=== PATIENT | male | born 1970 | race Caucasian/White ===

== ENCOUNTER 2019-07-31 22:03 | Inpatient (IN) ==
[2019-07-31] MEDS ORDERED: 0.9 % Sodium Chloride 1,000 ML IVC ONE ×2 (22:09→23:47)
[2019-07-31 22:39] LABS: Eosinophils % 0.4 %; Red Cell Distribution Width 14.8 % (11.5-14.5)
[2019-07-31 22:42] LABS: Hemoglobin 13.4 g/dL (12.9-16.9)
[2019-07-31 22:44] LABS: Basophils # 0.1 K/mcL (0.0-0.2); Basophils % 1.2 %; Immature Platelets 5.7 % (1.1-6.1); Lymphocytes % 41.9 %; Mean Corpuscular HGB Conc 33.5 g/dL (31.6-35.5); Mean Corpuscular Hemoglobin 33.6 pg (28.0-33.3); Mean Corpuscular Volume 100.3 fL (83.0-100.0); Mean Platelet Volume 10.9 fL (9.4-12.4); Monocytes # 0.8 K/mcL (0.0-1.3); Monocytes % 16.5 %; Neutrophils # 1.9 K/mcL (1.6-8.9); Red Blood Count 3.99 M/mcL (4.19-5.50); White Blood Count 4.8 K/mcL (4.3-11.1)
[2019-07-31 22:47] LABS: Platelet Count 98 K/mcL (140-400)
[2019-07-31 23:02] LABS: BUN/Creatinine Ratio 16 (6-26); Blood Urea Nitrogen 23 mg/dL (6-20); Calcium 9.4 mg/dL (8.6-10.3); Carbon Dioxide 21 mEq/L (23-29); Chloride 103 mEq/L (98-107); Glucose 153 mg/dL (70-105); Osmolality,Calculated 287 (280-300); Potassium 3.9 mEq/L (3.5-5.1); Sodium 135 mEq/L (136-145); Troponin I < 0.03 ng/mL (< 0.04); eGFR For African Americans > 60 (> 60); eGFR For Non-African Americans 53 (> 60)
[2019-07-31] MEDS ORDERED: Isovue-370 500 ML BOTTLE IVP ONE (23:03)
[2019-08-01 00:14] LABS: Alanine Aminotransferase 14 Units/L (7-52); Albumin 3.6 g/dL (3.5-5.7); Albumin/Globulin Ratio 1.1 (1.1-2.2); Alkaline Phosphatase 46 Units/L (34-104); Aspartate Amino Transferase 40 Units/L (13-39); Bilirubin,Direct 0.6 mg/dL (0.0-0.2); Bilirubin,Indirect 0.8 mg/dL (0.0-1.0); Bilirubin,Total 1.4 mg/dL (0.3-1.0); Globulin 3.2 g/dL (2.4-3.5); Total Protein 6.8 g/dL (6.4-8.9)
[2019-08-01] MEDS ORDERED: 0.9 % Sodium Chloride 1,000 ML IVC SCH (01:45)
[2019-08-01] MEDS ORDERED: Ondansetron 4 MG/2 ML VIAL IVP PRN (01:52)
[2019-08-01] MEDS ORDERED: Naloxone 0.4 MG/ML INJ IVP PRN (01:52)
[2019-08-01 02:09] LABS: Bilirubin,Urine Small (Negative); Blood,Urine Negative (Negative); Clarity,Urine Clear (Clear); Color,Urine Dark Yellow (Yellow); Glucose,Urine (UA) Normal (Normal); Ketones,Urine Trace mg/dL (Negative); Leukocyte Esterase,Urine Trace (Negative); Nitrite,Urine Negative (Negative); Protein,Urine 30 mg/dL (Neg-Trace); Specific Gravity,Urine > 1.030 (1.010-1.025); Urobilinogen,Urine >=8.0 mg/dL (Normal)
[2019-08-01 02:10] LABS: Hyaline Casts,Urine None Seen per lpf (None-Few); RBC,Urine 0-3 per hpf (0-3); WBC,Urine 0-3 per hpf (0-3)
[2019-08-01 02:18] LABS: Sodium, Urine 65.9 mEq/L
[2019-08-01 02:19] LABS: Mean Corpuscular Volume 101.4 fL (83.0-100.0); Mean Platelet Volume 10.8 fL (9.4-12.4)
[2019-08-01 02:19] LABS: Amorphous Sediment,Urine Few per hpf (Few); Bacteria,Urine Few per hpf (None-Few); Squamous Epithelial Cell,Urine Few per lpf (None-Few)
[2019-08-01 02:20] LABS: Hematocrit 36.1 % (37.5-50.1); Hemoglobin 11.8 g/dL (12.9-16.9); Mean Corpuscular HGB Conc 32.7 g/dL (31.6-35.5); Mean Corpuscular Hemoglobin 33.1 pg (28.0-33.3); Red Blood Count 3.56 M/mcL (4.19-5.50); White Blood Count 4.7 K/mcL (4.3-11.1)
[2019-08-01 03:00] LABS: Creatine Kinase 56 Units/L (30-223); Uric Acid 4.6 mg/dL (2.3-7.6)
[2019-08-01 03:20] LABS: Alanine Aminotransferase 12 Units/L (7-52); Albumin 3.1 g/dL (3.5-5.7); Albumin/Globulin Ratio 1.1 (1.1-2.2); Alkaline Phosphatase 38 Units/L (34-104); Aspartate Amino Transferase 33 Units/L (13-39); BUN/Creatinine Ratio 19 (6-26); Bilirubin,Total 1.1 mg/dL (0.3-1.0); Blood Urea Nitrogen 22 mg/dL (6-20); Calcium 8.5 mg/dL (8.6-10.3); Carbon Dioxide 22 mEq/L (23-29); Chloride 108 mEq/L (98-107); Chol/HDL Ratio 5.6 (0-4.9); Cholesterol 100 mg/dL (< 200); Globulin 2.8 g/dL (2.4-3.5); Glucose 82 mg/dL (70-105); HDL Cholesterol 18 mg/dL (40-59); LDL Cholesterol,Calculated 47 mg/dL (0-99); Magnesium 1.6 mg/dL (1.6-2.6); Osmolality,Calculated 286 (280-300); Phosphorous 2.1 mg/dL (2.7-4.5); Potassium 4.2 mEq/L (3.5-5.1); Sodium 137 mEq/L (136-145); Thyroid Stimulating Hormone 2.681 mcIU/mL (0.340-5.600); Total Protein 5.9 g/dL (6.4-8.9); Triglycerides 176 mg/dL (< 150); eGFR For African Americans > 60 (> 60); eGFR For Non-African Americans > 60 (> 60)
[2019-08-01 03:23] LABS: Folate 4.8 ng/mL (3.0-16.0)
[2019-08-01 03:28] LABS: Vitamin B12 > 1500 pg/mL (250-1100)
[2019-08-01 03:44] LABS: Valproate 4 mcg/mL (50-100)
[2019-08-01] MEDS ORDERED: Acetaminophen 325 MG TABLET PO PRN (03:52)
[2019-08-01 04:56] LABS: Eosinophils % 0.2 %; Hemoglobin 11.2 g/dL (12.9-16.9); Red Cell Distribution Width 15.1 % (11.5-14.5)
[2019-08-01 04:57] LABS: Hematocrit 34.1 % (37.5-50.1); Immature Platelets 4.8 % (1.1-6.1); Lymphocytes # 1.5 K/mcL (0.6-4.6); Lymphocytes % 36.4 %; Mean Corpuscular HGB Conc 32.8 g/dL (31.6-35.5); Mean Corpuscular Hemoglobin 33.3 pg (28.0-33.3); Mean Corpuscular Volume 101.5 fL (83.0-100.0); Mean Platelet Volume 10.5 fL (9.4-12.4); Monocytes # 0.7 K/mcL (0.0-1.3); Monocytes % 17.5 %; Neutrophils # 1.8 K/mcL (1.6-8.9); Red Blood Count 3.36 M/mcL (4.19-5.50); Segmented Neutrophils % 43.9 %; White Blood Count 4.1 K/mcL (4.3-11.1)
[2019-08-01 05:14] LABS: BUN/Creatinine Ratio 19 (6-26); Blood Urea Nitrogen 21 mg/dL (6-20); Calcium 8.3 mg/dL (8.6-10.3); Carbon Dioxide 21 mEq/L (23-29); Chloride 109 mEq/L (98-107); Glucose 80 mg/dL (70-105); Magnesium 1.7 mg/dL (1.6-2.6); Osmolality,Calculated 284 (280-300); Phosphorous 2.6 mg/dL (2.7-4.5); Potassium 4.2 mEq/L (3.5-5.1); Sodium 136 mEq/L (136-145); eGFR For African Americans > 60 (> 60); eGFR For Non-African Americans > 60 (> 60)
[2019-08-01 05:15] LABS: Platelet Count 90 K/mcL (140-400); Platelet Estimate Decreased (Normal); Polychromasia 1+ (Not Present)
[2019-08-01] MEDS ORDERED: Bismuth Subsalicylate 120 ML ORAL SUSPENSION PO PRN (09:00)
[2019-08-01] MEDS ORDERED: Bisacodyl 10 MG RECTAL SUPPOSITORY RC PRN (09:00)
[2019-08-01] MEDS ORDERED: Mag Hydrox/Al Hydrox/Simeth 30 ML UDC PO PRN (09:00)
[2019-08-01] MEDS ORDERED: MOM Conc 10 ML UD.LIQ PO PRN (09:00)
[2019-08-01] MEDS: QUEtiapine Fumarate 100 MG TABLET PO SCH (11:43)
[2019-08-01] MEDS ORDERED: Isovue-370 500 ML BOTTLE IVP ONE (12:30)
[2019-08-01] MEDS: MetroNIDAZOLE 500 MG/100 ML 500 MG/100 ML BAG IVPB SCH ×3 (12:47→23:18)
[2019-08-01] MEDS: 0.9 % Sodium Chloride 1,000 ML IVC SCH ×2 (12:48→23:13)
[2019-08-01] MEDS: levETIRAcetam 250 MG TABLET PO SCH (17:11)
[2019-08-01] MEDS ORDERED: QUEtiapine Fumarate 100 MG TABLET PO SCH (20:00)
[2019-08-01] MEDS ORDERED: Divalproex (24 HR) 500 MG TABLET PO SCH (20:00)
[2019-08-01] MEDS ORDERED: Fenofibrate 54 MG TABLET PO SCH (20:00)
[2019-08-01] MEDS: Lactulose Oral Soln 20 GM/30 ML UDC PO SCH (20:03)
[2019-08-02 03:12] LABS: Basophils # 0.1 K/mcL (0.0-0.2); Basophils % 1.3 %; Eosinophils # 0.1 K/mcL (0.0-0.6); Eosinophils % 1.3 %; Hematocrit 31.2 % (37.5-50.1); Hemoglobin 10.3 g/dL (12.9-16.9); Immature Granulocytes % 0.8 % (0-4); Lymphocytes # 2.1 K/mcL (0.6-4.6); Mean Corpuscular Hemoglobin 34.2 pg (28.0-33.3); Mean Corpuscular Volume 103.7 fL (83.0-100.0); Mean Platelet Volume 10.7 fL (9.4-12.4); Monocytes # 0.6 K/mcL (0.0-1.3); Monocytes % 16.1 %; Neutrophils # 1.1 K/mcL (1.6-8.9); Platelet Count 102 K/mcL (140-400); Red Blood Count 3.01 M/mcL (4.19-5.50); Red Cell Distribution Width 15.4 % (11.5-14.5); Segmented Neutrophils % 28.5 %
[2019-08-02 03:29] LABS: Alanine Aminotransferase 10 Units/L (7-52); Albumin 2.8 g/dL (3.5-5.7); Albumin/Globulin Ratio 1.1 (1.1-2.2); Alkaline Phosphatase 32 Units/L (34-104); Aspartate Amino Transferase 29 Units/L (13-39); BUN/Creatinine Ratio 15 (6-26); Bilirubin,Total 0.8 mg/dL (0.3-1.0); Blood Urea Nitrogen 15 mg/dL (6-20); Calcium 8.2 mg/dL (8.6-10.3); Carbon Dioxide 21 mEq/L (23-29); Chloride 114 mEq/L (98-107); Globulin 2.5 g/dL (2.4-3.5); Glucose 70 mg/dL (70-105); Magnesium 1.8 mg/dL (1.6-2.6); Osmolality,Calculated 287 (280-300); Phosphorous 3.4 mg/dL (2.7-4.5); Potassium 4.2 mEq/L (3.5-5.1); Sodium 139 mEq/L (136-145); Total Protein 5.3 g/dL (6.4-8.9); eGFR For African Americans > 60 (> 60); eGFR For Non-African Americans > 60 (> 60)
[2019-08-02] MEDS: levETIRAcetam 250 MG TABLET PO SCH (05:54)
[2019-08-02] MEDS ORDERED: Levothyroxine 25 MCG TABLET PO SCH (06:30)
[2019-08-02] MEDS ORDERED: Aspirin Enteric Coated 81 MG Tablet PO SCH (08:00)
[2019-08-02] MEDS ORDERED: CYANOCOBALAMIN SL SCH (08:00)
[2019-08-02] MEDS ORDERED: Loratadine 10 MG TABLET PO SCH (08:00)
[2019-08-02] MEDS ORDERED: [UNRECOGNIZED DRUG - OTHER] SL SCH (08:00)
[2019-08-02] MEDS ORDERED: Cholecalciferol (D-3) 1,000 UNIT (25MCG) TABLET PO SCH (08:00)
[2019-08-02] MEDS: Lactulose Oral Soln 20 GM/30 ML UDC PO SCH (08:16)
[2019-08-02] MEDS: QUEtiapine Fumarate 100 MG TABLET PO SCH (08:16)
[2019-08-02] MEDS: MetroNIDAZOLE 500 MG/100 ML 500 MG/100 ML BAG IVPB SCH ×3 (08:17→23:23)
[2019-08-02] MEDS ORDERED: Ketorolac 30 MG/ML VIAL ONE (12:02)
[2019-08-02] MEDS ORDERED: Ondansetron 4 MG/2 ML VIAL ONE (12:02)
[2019-08-02] MEDS ORDERED: Lidocaine -MPF 2% 2 ML VIAL ONE (12:02)
[2019-08-02] MEDS ORDERED: *HR* Rocuronium Bromide 50 MG/5 ML VIAL ONE (12:02)
[2019-08-02] MEDS ORDERED: Dexamethasone 4 MG/ML VIAL ONE (12:02)
[2019-08-02] MEDS ORDERED: *HR* Propofol 200 MG/20 ML VIAL IVP ONE (12:03)
[2019-08-02] MEDS ORDERED: *HR* FentaNYL (PF) 100 MCG/2 ML VIAL ONE (12:03)
[2019-08-02] MEDS ORDERED: *HR* Midazolam HCl 2 MG/2 ML VIAL ONE (12:04)
[2019-08-02] MEDS ORDERED: Ondansetron 4 MG/2 ML VIAL IVP ONE (13:22)
[2019-08-02] MEDS ORDERED: *HR* HYDROmorphone PF 0.5 MG/0.5 ML SYRINGE IVP PRN (13:22)
[2019-08-02] MEDS ORDERED: EPHEDrine 50 MG/ML VIAL ONE (13:52)
[2019-08-02] MEDS ORDERED: Acetaminophen 325 MG TABLET PO PRN (15:05)
[2019-08-02] MEDS ORDERED: MOM Conc 10 ML UD.LIQ PO PRN (15:05)
[2019-08-02] MEDS ORDERED: Ondansetron 4 MG/2 ML VIAL IVP PRN (15:05)
[2019-08-02] MEDS ORDERED: Bisacodyl 10 MG RECTAL SUPPOSITORY RC PRN (15:05)
[2019-08-02] MEDS ORDERED: Naloxone 0.4 MG/ML INJ IVP PRN (15:05)
[2019-08-02] MEDS ORDERED: Fenofibrate 54 MG TABLET PO SCH (20:00)
[2019-08-02] MEDS ORDERED: QUEtiapine Fumarate 100 MG TABLET PO SCH (20:00)
[2019-08-02] MEDS: Divalproex (12 HR) 500 MG TABLET PO SCH (20:11)
[2019-08-02] MEDS ORDERED: Divalproex (12 HR) 500 MG TABLET PO SCH (21:00)
[2019-08-03] MEDS ORDERED: Levothyroxine 25 MCG TABLET PO SCH (06:30)
[2019-08-03 07:12] VITALS: BP 100/61
[2019-08-03 07:46] LABS: Basophils % 0.1 %; Hematocrit 37.7 % (37.5-50.1); Immature Granulocytes % 0.9 % (0-4); Lymphocytes # 0.9 K/mcL (0.6-4.6); Lymphocytes % 11.4 %; Mean Corpuscular HGB Conc 32.1 g/dL (31.6-35.5); Mean Corpuscular Volume 102.7 fL (83.0-100.0); Mean Platelet Volume 10.1 fL (9.4-12.4); Monocytes # 1.1 K/mcL (0.0-1.3); Monocytes % 13.6 %; Neutrophils # 6.1 K/mcL (1.6-8.9); Platelet Count 226 K/mcL (140-400); Red Blood Count 3.67 M/mcL (4.19-5.50); Red Cell Distribution Width 15.6 % (11.5-14.5)
[2019-08-03 07:48] LABS: Hemoglobin 12.1 g/dL (12.9-16.9); White Blood Count 8.2 K/mcL (4.3-11.1)
[2019-08-03] MEDS ORDERED: Loratadine 10 MG TABLET PO SCH (08:00)
[2019-08-03] MEDS ORDERED: QUEtiapine Fumarate 100 MG TABLET PO SCH (08:00)
[2019-08-03] MEDS: Divalproex (12 HR) 500 MG TABLET PO SCH (08:03)
[2019-08-03] MEDS: MetroNIDAZOLE 500 MG/100 ML 500 MG/100 ML BAG IVPB SCH (08:04)
[2019-08-03 09:23] LABS: Alanine Aminotransferase 28 Units/L (7-52); Albumin 3.7 g/dL (3.5-5.7); Albumin/Globulin Ratio 1.2 (1.1-2.2); Alkaline Phosphatase 42 Units/L (34-104); Aspartate Amino Transferase 101 Units/L (13-39); BUN/Creatinine Ratio 20 (6-26); Bilirubin,Total 0.9 mg/dL (0.3-1.0); Blood Urea Nitrogen 22 mg/dL (6-20); Calcium 9.7 mg/dL (8.6-10.3); Carbon Dioxide 23 mEq/L (23-29); Chloride 108 mEq/L (98-107); Globulin 3.1 g/dL (2.4-3.5); Glucose 94 mg/dL (70-105); Magnesium 1.9 mg/dL (1.6-2.6); Osmolality,Calculated 289 (280-300); Phosphorous 4.3 mg/dL (2.7-4.5); Potassium 4.9 mEq/L (3.5-5.1); Sodium 138 mEq/L (136-145); Total Protein 6.8 g/dL (6.4-8.9); eGFR For African Americans > 60 (> 60); eGFR For Non-African Americans > 60 (> 60)
[2019-08-06] MEDS ORDERED: Ergocalciferol (VIT D2) 50,000 UNIT (1.25MG) CAP PO SCH (09:00)
== END 2019-08-03 11:58 | DRG 988 ==
LOC: 3BNU 22:03 → EMEROOARM 22:03 → SUATTDRO 08-01 00:48 → 3BNU 08-01 00:49
PROVIDERS: ADMIT Student in an Organized Health Care Education/Training Program; ATTEND Internal Medicine